=== PATIENT | female | born 1965 | race Hispanic/Latino ===

== ENCOUNTER 2023-02-08 06:11 | Day surgery (SDC) | payer OTHER ==
[2023-02-07 13:41] LABS: BASOPHILS % (AUTO) 0.6 % (0.0-5.0); EOSINOPHILS % (AUTO) 1.3 % (0.0-8.0); HEMATOCRIT 43.8 % (36-48); LYMPHOCYTES % (AUTO) 29.1 % (21.0-51.0); MEAN CORPUSCULAR HEMOGLOBIN 28.8 pg (27.0-33.0); MEAN CORPUSCULAR HGB CONC 32.4 g/dL (32.0-36.0); MEAN CORPUSCULAR VOLUME 88.8 fL (79-99); MONOCYTES % (AUTO) 6.6 % (3.0-13.0); NEUTROPHILS % (AUTO) 62.1 % (40.0-77.0); PLATELET COUNT (AUTO) 302 K/uL (130-400); RED BLOOD CELL COUNT(AUTO) 4.93 MIL/uL (4.00-5.50); RED CELL DISTRIBUTION WIDTH 13.1 % (11.0-15.5); WHITE BLOOD COUNT (AUTO) 6.9 K/uL (4.8-10.8)
[2023-02-07 13:48] VITALS: BP 140/60; PULSE 73; RESP 20
[2023-02-07 13:51] LABS: CREATININE 0.6 mg/dL (0.5-1.5); POTASSIUM 4.2 mmol/L (3.5-5.1)
[2023-02-07 13:55] LABS: INR 0.96 (0.85-1.15); PROTHROMBIN TIME 11.2 SEC (9.6-11.6)
[2023-02-07 13:57] LABS: PARTIAL THROMBOPLASTIN TIME 27.5 SEC (26.3-35.5)
[2023-02-07 14:08] LABS: B-TYPE NATRIURETIC PEPTIDE 28 pg/mL (0-100)
[2023-02-08] VITALS (11 sets, daily range): BP systolic 113–145; BP diastolic 59–78; PULSE 75–86; RESP 8–16
[~2023-02-08] VITALS: Ht 172.7 cm; Wt 82.6 kg
[~2023-02-08 06:11] MED LIST: AEC81 PO; DAPA1TAB5 PO; DULA4.5P SQ; GLIM4TAB36 PO; ICOS1CAP PO; INSU100V37 SQ; ISOS30TA92 PO; LORA0.5T83 PO; METO-408 PO; PIOG30TA70 PO; RAMI5CAP66 PO; SIMV-43 PO
[2023-02-08] MEDS ORDERED: 0.9%NACL 1000ML 1,000 ML IV ONE (07:13)
[2023-02-08] MEDS ORDERED: LIDOCAINE HCL 400MG/20ML VIAL ONE (09:29)
[2023-02-08] MEDS ORDERED: FENTANYL CITRATE PF 50 MCG/1 ML 2ML VIAL ONE (09:29)
[2023-02-08] MEDS ORDERED: IOHEXOL-350 50ML VIAL IV ONE ×2 (09:30→11:04)
[2023-02-08] MEDS ORDERED: IOHEXOL 350 MG/ML 100ML INFUS..BTL IV ONE ×3 (09:30→10:40)
[2023-02-08] MEDS ORDERED: VERAPAMIL HCL 2.5 MG/ML VIAL ONE (09:30)
[2023-02-08] MEDS ORDERED: MIDAZOLAM HCL 1 MG/ML 2ML VIAL ONE ×2 (09:30→10:15)
[2023-02-08] MEDS ORDERED: NITROGLYCERIN 50MG VIAL ONE (09:30)
[2023-02-08] MEDS ORDERED: HEPARIN 10,000 UNIT/10ML (1,000 UNIT/ML) VIAL ONE (09:30)
[2023-02-08] MEDS ORDERED: EPTIFIBATIDE 75MG/100ML BOTTLE 100 ML IV ONE (10:42)
[2023-02-08] MEDS ORDERED: EPTIFIBATIDE 2 MG/ML 10 ML VIAL IVP ONE (10:43)
[2023-02-08] MEDS ORDERED: DEXTROSE 50%-WATER 50 ML DISP.SYRIN IV PRN (11:30)
[2023-02-08] MEDS ORDERED: INSULIN HUMULIN R 100 UNIT/ML 3ML SQ SCH (11:30)
[2023-02-08] MEDS ORDERED: 0.9%NACL 1000ML 1,000 ML IV SCH (11:30)
[2023-02-08] MEDS ORDERED: CLOPIDOGREL 300MG TAB ONE (11:55)
[2023-02-08] MEDS ORDERED: EPTIFIBATIDE 75MG/100ML BOTTLE 100 ML IV SCH (12:30)
== END 2023-02-08 18:30 | disposition home or self-care (01) ==
LOC: DAH 06:11
PROVIDERS: ATTEND Internal Medicine Interventional Cardiology
DX: I25.10 Atherosclerotic heart disease of native coronary artery without angina pectoris (principal); R07.9 Chest pain, unspecified; I10 Essential (primary) hypertension; E78.2 Mixed hyperlipidemia; E11.43 Type 2 diabetes mellitus with diabetic autonomic (poly)neuropathy; E11.59 Type 2 diabetes mellitus with other circulatory complications; Z79.84 Long term (current) use of oral hypoglycemic drugs; Z79.899 Other long term (current) drug therapy; Z79.82 Long term (current) use of aspirin; Z79.01 Long term (current) use of anticoagulants; Z98.890 Other specified postprocedural states
CPT/HCPCS: 80048; 83880; 85025; 85610; 85730; 36415; 71045; 93005; 93458; 85347; 82948 ×2; A4223 ×3; C1769 ×3; C1894 ×4; C1760; C1887 ×2; C1874 ×2; C1725 ×2; Q9965 ×3; J3010; J3490 ×3; J7030; J1644 ×2; J2250 ×2; J1327 ×2; Q9967 ×5; A4215; A4222; A4221; A4663; A4216; A4606; C9600; C9601; 99156; 99157